=== PATIENT | female | born 1985 | race African-American/Black ===

== ENCOUNTER 2016-11-07 14:33 | Emergency (ER) | payer MEDICAID ==
[2011-06-15 10:42] VITALS: BMI 36.3
[2016-11-07 15:59] LABS: ALBUMIN 3.4 g/dL (3.4-5.0); ANION GAP 16.3 mmol/L (8-16); BASOPHILS 0.4 % (0-2); BILIRUBIN - TOTAL 0.98 mg/dL (0.2-1.3); CALCIUM 8.7 mg/dL (8.5-10.1); CARBON DIOXIDE 20.6 mmol/L (21.0-32.0); EOSINOPHILS 2.2 % (0-7); HEMATOCRIT 42.3 % (36.0-48.0); HEMOGLOBIN 14.2 g/dL (12-16); IMMATURE GRANULOCYTES 0.2 % (0-5); LYMPHOCYTES 45.4 % (15-50); MCH 29.2 pg (26.0-34.0); MCHC 33.6 g/dL (31.0-37.0); MCV 86.9 fL (80.0-100.0); MEAN PLATELET VOLUME 13.3 fL (7.4-10.4); MONOCYTES 6.4 % (2-11); NEUTROPHILS 45.4 % (40-80); POTASSIUM - SERUM 3.9 mmol/L (3.5-5.1); PROTEIN - SERUM 6.7 g/dL (6.4-8.2); RBC 4.87 10x6/uL (4.00-5.40); RDW 13.7 % (11.5-14.5); WBC 4.5 10x3/uL (4.8-10.8)
[2016-11-07 16:06] LABS: PLATELET COUNT 169 10x3/uL (130-400)
== END 2016-11-07 18:15 | disposition home or self-care (01) ==
LOC: D.ER 14:33
PROVIDERS: Emergency Medicine
DX: R06.02 Shortness of breath (principal); J20.9 Acute bronchitis, unspecified; J45.909 Unspecified asthma, uncomplicated; R11.2 Nausea with vomiting, unspecified; R19.7 Diarrhea, unspecified; I50.9 Heart failure, unspecified; R00.0 Tachycardia, unspecified

== ENCOUNTER 2016-12-23 02:29 | Emergency (ER) | payer MEDICAID ==
[2011-06-15 10:42] VITALS: BMI 36.3
[2016-12-23 02:59] LABS: BASOPHILS 0.2 % (0-2); HEMATOCRIT 40.3 % (36.0-48.0); IMMATURE GRANULOCYTES 0.2 % (0-5); MCH 28.3 pg (26.0-34.0); MCHC 32.3 g/dL (31.0-37.0); MCV 87.6 fL (80.0-100.0); MEAN PLATELET VOLUME 12.2 fL (7.4-10.4); MONOCYTES 6.7 % (2-11); NEUTROPHILS 44.9 % (40-80); PLATELET COUNT 148 10x3/uL (130-400); RDW 15.5 % (11.5-14.5); WBC 4.9 10x3/uL (4.8-10.8)
[2016-12-23 03:13] LABS: ALBUMIN 2.9 g/dL (3.4-5.0); ALKALINE PHOSPHATASE 58 U/L (46-116); ALT (SGPT) 15 U/L (10-68); BILIRUBIN - TOTAL 0.71 mg/dL (0.2-1.3); CALC OSMOLALITY 282 mosm/kg (275-300); CALCIUM 8.2 mg/dL (8.5-10.1); CARBON DIOXIDE 24.9 mmol/L (21.0-32.0); CHLORIDE - SERUM 105 mmol/L (98-107); CREATININE - SERUM 1.4 mg/dL (0.6-1.3); GLUCOSE 130 mg/dL (74-106); POTASSIUM - SERUM 3.6 mmol/L (3.5-5.1); PROTEIN - SERUM 5.9 g/dL (6.4-8.2); SODIUM 141 mmol/L (136-145); UREA NITROGEN 12 mg/dL (7-18); eGFR NON AFRICAN AMERICAN 47 mL/min (90-120)
[2016-12-23 03:25] LABS: CHOL - HDL RATIO 3.5 ratio (2.3-4.1); CHOLESTEROL, TOTAL 116 mg/dL (0-200); CKMB 0.4 U/L (0.0-3.6); CREATINE KINASE 124 UL (21-215); HDL CHOLESTEROL 33 mg/dL (32-96); LDL CHOLESTEROL 53 mg/dL (0-100); LDL-HDL RATIO 1.6 ratio (1.5-3.5); TRIGLYCERIDE 150 mg/dL (30-200); TROPONIN-I 0.031 ng/mL (0.000-0.060)
[2016-12-23 08:03] LABS: TROPONIN-I 0.034 ng/mL (0.000-0.060)
== END 2016-12-23 09:35 | disposition home or self-care (01) ==
LOC: D.ER 02:29
PROVIDERS: Emergency Medicine
DX: R07.9 Chest pain, unspecified (principal); I50.9 Heart failure, unspecified

== ENCOUNTER 2016-12-23 11:41 | Emergency (ER) | payer MEDICAID ==
[2011-06-15 10:42] VITALS: BMI 36.3
[2016-12-23 12:44] LABS: BASOPHILS 0.4 % (0-2); EOSINOPHILS 2.4 % (0-7); HEMATOCRIT 44.2 % (36.0-48.0); HEMOGLOBIN 14.3 g/dL (12-16); MCH 28.8 pg (26.0-34.0); MCHC 32.4 g/dL (31.0-37.0); MCV 89.1 fL (80.0-100.0); MONOCYTES 10.4 % (2-11); NEUTROPHILS 51.8 % (40-80); RBC 4.96 10x6/uL (4.00-5.40); RDW 15.9 % (11.5-14.5)
[2016-12-23 12:51] LABS: PLATELET COUNT 277 10x3/uL (130-400)
[2016-12-23 13:02] LABS: ALBUMIN 3.2 g/dL (3.4-5.0); BILIRUBIN - TOTAL 0.74 mg/dL (0.2-1.3); CALCIUM 8.3 mg/dL (8.5-10.1); CARBON DIOXIDE 27.7 mmol/L (21.0-32.0); CREATININE - SERUM 1.2 mg/dL (0.6-1.3); PROTEIN - SERUM 6.6 g/dL (6.4-8.2)
[2016-12-23 13:05] LABS: ANION GAP 11.6 mmol/L (8-16); POTASSIUM - SERUM 4.3 mmol/L (3.5-5.1)
[2016-12-23 13:06] LABS: TROPONIN-I 0.02 ng/mL (0.000-0.060)
== END 2016-12-23 14:40 | disposition home or self-care (01) ==
LOC: D.ER 11:41
PROVIDERS: Family Medicine
DX: R07.9 Chest pain, unspecified (principal); I50.9 Heart failure, unspecified

== ENCOUNTER 2017-02-03 15:24 | Emergency (ER) | payer MEDICAID ==
[2011-06-15 10:42] VITALS: BMI 36.3
[2017-02-03 16:01] LABS: BASOPHILS 0.7 % (0-2); EOSINOPHILS 1.3 % (0-7); HEMATOCRIT 43.1 % (36.0-48.0); IMMATURE GRANULOCYTES 0.2 % (0-5); LYMPHOCYTES 38.8 % (15-50); MCH 28.2 pg (26.0-34.0); MCHC 32.5 g/dL (31.0-37.0); MCV 86.9 fL (80.0-100.0); MONOCYTES 8.9 % (2-11); NEUTROPHILS 50.1 % (40-80); RBC 4.96 10x6/uL (4.00-5.40); RDW 14.7 % (11.5-14.5); WBC 4.5 10x3/uL (4.8-10.8)
[2017-02-03 16:09] LABS: PLATELET COUNT 182 10x3/uL (130-400)
[2017-02-03 16:20] LABS: ALBUMIN 3.4 g/dL (3.4-5.0); ALKALINE PHOSPHATASE 61 U/L (46-116); ALT (SGPT) 16 U/L (10-68); BILIRUBIN - TOTAL 1.26 mg/dL (0.2-1.3); CALC OSMOLALITY 277 mosm/kg (275-300); CALCIUM 8.5 mg/dL (8.5-10.1); CARBON DIOXIDE 25.3 mmol/L (21.0-32.0); CHLORIDE - SERUM 104 mmol/L (98-107); CREATININE - SERUM 0.9 mg/dL (0.6-1.3); GLUCOSE 114 mg/dL (74-106); POTASSIUM - SERUM 3.5 mmol/L (3.5-5.1); PROTEIN - SERUM 6.6 g/dL (6.4-8.2); SODIUM 140 mmol/L (136-145); UREA NITROGEN 7 mg/dL (7-18); eGFR NON AFRICAN AMERICAN 78 mL/min (90-120)
[2017-02-03 16:34] LABS: CHOL - HDL RATIO 3.6 ratio (2.3-4.1); CHOLESTEROL, TOTAL 138 mg/dL (0-200); CKMB 0.5 U/L (0.0-3.6); CREATINE KINASE 131 UL (21-215); HDL CHOLESTEROL 38 mg/dL (32-96); LDL CHOLESTEROL 84 mg/dL (0-100); LDL-HDL RATIO 2.2 ratio (1.5-3.5); PRO BNP 8359 pg/mL (0-125); TRIGLYCERIDE 83 mg/dL (30-200); TROPONIN-I 0.026 ng/mL (0.000-0.060)
== END 2017-02-03 21:00 | disposition home or self-care (01) ==
LOC: D.ER 15:24
PROVIDERS: Emergency Medicine
DX: I50.9 Heart failure, unspecified (principal); R05 Cough; Z86.79 Personal history of other diseases of the circulatory system

== ENCOUNTER 2017-03-11 19:26 | Emergency (ER) | payer MEDICAID ==
[2011-06-15 10:42] VITALS: BMI 36.3
[2017-03-11 20:35] LABS: BASOPHILS 0.6 % (0-2); EOSINOPHILS 1.3 % (0-7); HEMATOCRIT 45.4 % (36.0-48.0); HEMOGLOBIN 14.6 g/dL (12-16); IMMATURE GRANULOCYTES 0.2 % (0-5); LYMPHOCYTES 34.9 % (15-50); MCH 28.2 pg (26.0-34.0); MCHC 32.2 g/dL (31.0-37.0); MCV 87.6 fL (80.0-100.0); MEAN PLATELET VOLUME 12.7 fL (7.4-10.4); MONOCYTES 8.7 % (2-11); NEUTROPHILS 54.3 % (40-80); PLATELET COUNT 188 10x3/uL (130-400); RBC 5.18 10x6/uL (4.00-5.40); RDW 15.1 % (11.5-14.5); WBC 5.2 10x3/uL (4.8-10.8)
[2017-03-11 20:58] LABS: ALBUMIN 3.3 g/dL (3.4-5.0); ALKALINE PHOSPHATASE 53 U/L (46-116); ALT (SGPT) 16 U/L (10-68); CALC OSMOLALITY 278 mosm/kg (275-300); CARBON DIOXIDE 26.4 mmol/L (21.0-32.0); CHLORIDE - SERUM 103 mmol/L (98-107); CREATININE - SERUM 1.2 mg/dL (0.6-1.3); GLUCOSE 109 mg/dL (74-106); POTASSIUM - SERUM 3.5 mmol/L (3.5-5.1); PROTEIN - SERUM 6.5 g/dL (6.4-8.2); SODIUM 140 mmol/L (136-145); UREA NITROGEN 9 mg/dL (7-18); eGFR NON AFRICAN AMERICAN 56 mL/min (90-120)
[2017-03-11 21:03] LABS: CKMB 0.2 U/L (0.0-3.6); CREATINE KINASE 113 UL (21-215); PRO BNP 9810 pg/mL (0-125); TROPONIN-I 0.029 ng/mL (0.000-0.060)
== END 2017-03-11 22:35 | disposition home or self-care (01) ==
LOC: D.ER 19:26
PROVIDERS: Emergency Medicine
DX: R05 Cough (principal); R09.89 Other specified symptoms and signs involving the circulatory and respiratory systems; I50.9 Heart failure, unspecified; R07.9 Chest pain, unspecified; R00.0 Tachycardia, unspecified

== ENCOUNTER 2017-03-17 19:47 | Emergency (ER) | payer MEDICAID ==
[2011-06-15 10:42] VITALS: BMI 36.3
== END 2017-03-17 21:35 | disposition home or self-care (01) ==
LOC: D.ER 19:47
DX: R07.89 Other chest pain (principal); R05 Cough

== ENCOUNTER 2018-02-14 06:22 | Emergency (ER) | payer MEDICAID ==
[~2018-02-14] VITALS: Ht 152.4 cm; Wt 89.5 kg
[2018-02-14 06:28] VITALS: Ht 152.4 cm; Wt 89.5 kg
[2018-02-14] MEDS ORDERED: FUROSEMIDE20 MG PO (06:34)
[2018-02-14] MEDS ORDERED: COREG12.5 MG (06:34)
[2018-02-14] MEDS ORDERED: KLOR-CON 1010 MEQ PO (06:35)
[2018-02-14] MEDS ORDERED: BAYER CHEWABLE81 MG (06:35)
[2018-02-14] MEDS ORDERED: COREG12.5 MG PO (06:35)
[2018-02-14 06:54] LABS: BASOPHILS 0.6 % (0-2); EOSINOPHILS 1.4 % (0-7); HEMATOCRIT 41.8 % (36.0-48.0); HEMOGLOBIN 13.5 g/dL (12-16); IMMATURE GRANULOCYTES 0.2 % (0-5); LYMPHOCYTES 34.2 % (15-50); MCH 28.8 pg (26.0-34.0); MCHC 32.3 g/dL (31.0-37.0); MCV 89.3 fL (80.0-100.0); MEAN PLATELET VOLUME 12.6 fL (7.4-10.4); MONOCYTES 6.8 % (2-11); NEUTROPHILS 56.8 % (40-80); PLATELET COUNT 166 10x3/uL (130-400); RBC 4.68 10x6/uL (4.00-5.40); RDW 15.5 % (11.5-14.5)
[2018-02-14 07:31] LABS: BILIRUBIN - TOTAL 1.02 mg/dL (0.2-1.3); CALCIUM 8.1 mg/dL (8.5-10.1); CARBON DIOXIDE 24.6 mmol/L (21.0-32.0); CREATININE - SERUM 1.1 mg/dL (0.6-1.3); POTASSIUM - SERUM 3.6 mmol/L (3.5-5.1); PROTEIN - SERUM 6.2 g/dL (6.4-8.2)
[2018-02-14 08:16] LABS: CKMB 0.6 U/L (0.0-3.6); CREATINE KINASE 129 UL (21-215)
[2018-02-14 09:59] LABS: HCG SERUM NEGATIVE (NEGATIVE)
[2018-02-14] MEDS ORDERED: LASIX40 MG PO (10:58)
[2018-02-14 11:26] VITALS: BP 123/77
== END 2018-02-14 11:28 | disposition home or self-care (01) ==
LOC: D.ER 06:22
PROVIDERS: Family Medicine
DX: I50.9 Heart failure, unspecified (principal); I42.9 Cardiomyopathy, unspecified; R07.9 Chest pain, unspecified

== ENCOUNTER 2020-11-04 20:04 | Inpatient (IN) | payer MEDICAID ==
[~2020-11-04] VITALS: Ht 152.4 cm; Wt 59.9 kg
--- NOTE | ~2020-11-04 | OP ---
PATIENT NAME: NIRANJAN TUTTLE MEDICAL RECORD: [id number] LOCATION:D.M2 D.3 ADMISSION DATE:11/04/20 SURGEON: COLIN LABOY MD DATE OF OPERATION: 11/11/2020 PREOPERATIVE DIAGNOSES: 1. Ventral hernia. 2. Cardiomyopathy. 3. Congestive heart failure. POSTOPERATIVE DIAGNOSES: 1. Ventral hernia. 2. Cardiomyopathy. 3. Congestive heart failure. PROCEDURE: Ventral hernia repair. SURGEON: Colin Laboy MD REPORT OF PROCEDURE: The patient's abdomen was prepped and draped in sterile fashion. Preoperatively, the patient underwent a TAP block with anesthesia. A total of 10 mL of 1% lidocaine plain was infused into the tissues around the umbilicus. A semicircular incision was made on the inferior aspect of the umbilicus and electrocautery was used to dissect through the subcutaneous tissues. We elevated the umbilicus and was able to find a small hernia defect present. The hernia sac was transected down to the fascial edges and the defect was about a centimeter in greatest diameter. We closed this defect longitudinally with interrupted 0 Prolenes times 3. The umbilicus was tacked down with a single interrupted 3-0 Vicryl. The subcutaneous tissues were reapproximated with interrupted 3-0 Vicryl and the skin was closed with running subcutaneous 5-0 Monocryl. COMPLICATIONS: None. CONDITION: Stable. ANESTHESIA: Local and TAP block. BLOOD LOSS: Minimal. TRANSINT:[id number] Voice Confirmation ID: [id number] DOCUMENT ID: [id number] COLIN LABOY MD CC: [id number] DICTATION DATE: 11/11/20 1054 HOG BUYER: 11/11/20 1112 ADM IN [facility] [address] [id number]
[~2020-11-04 20:04] MED LIST: BAYER CHEWABLE81 MG PO; COREG12.5 MG; COREG12.5 MG PO; FUROSEMIDE20 MG PO; KLOR-CON 1010 MEQ PO; LASIX40 MG PO
--- NOTE | 2020-11-04 20:26 | NUR ---
EMS CALLED TO [facility]IDENCE REGARDING MID STERNAL CHEST PAIN AND UPPER ABD PAIN WITH NAUSEA THAT BEGAN ON SUNDAY. ADMITTED TO [facility] FOR SAME AND DISCHARGED TODAY.
[2020-11-04 20:52] LABS: BILIRUBIN NEGATIVE (NEGATIVE); KETONE NEGATIVE (NEGATIVE); NITRITE NEGATIVE (NEGATIVE); UROBILINOGEN NORMAL mg/dL (< 2)
[2020-11-04 20:54] LABS: HCG URINE NEGATIVE (NEGATIVE)
[2020-11-04 21:00] VITALS: BP 114/91
[2020-11-04 21:32] LABS: BASOPHILS 0.9 % (0-2); EOSINOPHILS 1.7 % (0-7); HEMATOCRIT 47.7 % (36.0-48.0); HEMOGLOBIN 15.9 g/dL (12-16); LYMPHOCYTE ABS# 1.09 10x3/uL (1.18-3.74); LYMPHOCYTES 31.6 % (15-50); MCH 27.7 pg (26.0-34.0); MCHC 33.3 g/dL (31.0-37.0); MCV 83.2 fL (80.0-100.0); MONOCYTES 14.2 % (2-11); NEUTROPHIL ABS# 1.78 10x3/uL (1.56-6.13); NEUTROPHILS 51.6 % (40-80); RBC 5.73 10x6/uL (4.00-5.40); RDW 14.7 % (11.5-14.5); WBC 3.5 10x3/uL (4.8-10.8)
[2020-11-04 21:33] LABS: PLATELET COUNT 89 10x3/uL (130-400)
[2020-11-04 21:35] LABS: PLATELET ESTIMATE DECREASED
[2020-11-04] MEDS ORDERED: FENTANYL1 EAC3 TRANSDERM (21:36)
[2020-11-04] MEDS ORDERED: SCOPOLAMINE1 EACH (21:37)
[2020-11-04 21:40] LABS: ANION GAP 14.4 mmol/L (8-16); CALCIUM 9.5 mg/dL (8.5-10.1); CARBON DIOXIDE 30.6 mmol/L (21.0-32.0); CREATININE - SERUM 1.4 mg/dL (0.6-1.3)
[2020-11-04 22:00] VITALS: BP 114/80
[2020-11-04 22:01] LABS: ALBUMIN 4.1 g/dL (3.4-5.0); BILIRUBIN - TOTAL 2.99 mg/dL (0.2-1.3)
[2020-11-04 22:02] LABS: TROPONIN-I 0.082 ng/mL (0.000-0.060)
[2020-11-04 22:09] LABS: UDS - AMPHET NEGATIVE QUAL (NEGATIVE); UDS - BARB NEGATIVE QUAL (NEGATIVE); UDS - BENZO NEGATIVE QUAL (NEGATIVE); UDS - COCAINE NEGATIVE QUAL (NEGATIVE); UDS - OPIATE POSITIVE QUAL (NEGATIVE); UDS - PCP NEGATIVE QUAL (NEGATIVE); UDS - THC POSITIVE QUAL (NEGATIVE)
[2020-11-04 22:36] LABS: APTT 35.6 SECONDS (22.8-39.4); INR 1.42 (0.85-1.17); PROTIME 16.1 SECONDS (11.6-15.0)
[2020-11-04 22:37] LABS: D-DIMER-QUANTITATIVE 0.33 ug/mLFEU (0.20-0.54)
[2020-11-04 22:49] LABS: MAGNESIUM - SERUM 1.3 mg/dL (1.8-2.4); THYROID STIMULATING HORMONE 1.45 uIU/mL (0.36-3.74)
[2020-11-04 23:00] VITALS: BP 105/70
[2020-11-05 00:17] VITALS: BMI 25.8
--- NOTE | 2020-11-05 00:24 | NUR ---
PT ARRIVED TO THE UNIT VIA STRETCHER TRANSPORTED BY RN WITH SISTER JAMES AT THE BEDSIDE. PT IS AAOX4, LAYING IN BED ON RIGHT SIDE. PT C/O NOT FEELING GOOD. PT ACTIVELY VOMITING, GIVEN ORN ZOFRAN ORDERED IV. PT SEEMS TO HAVE SOME RELEIF FROM VOMITING. PT ABLE TO ANSWER QUESTIONS APPROPRIATELY. FETANYL PATCH PRESENT ON HER LOWER BACK FROM PREVIOUS HOSPITAL ADMISSION. PT ALSO HAS A SCOPOLOMINE PATCH ON FROM PREVIOUS HOSPITAL ADMISSION AND STATES IT DOES NOT WORK AND HAS HAD IT NOW FOR THREE DAYS. IV IS 20 GAUGE IN LEFT AC, INTACT, PATENT. PRN MAG STARTED IV ORDERED FOR LOW MAGNESIUM LEVEL. ED RN STATED SHE REPLACED POTASSIUM ALREADY. WILL CONTINUE TO MONITOR PATIENT. SISTER JAMES AT THE BEDSIDE. PT FATHER IS A PT ACROSS THE [employer].
--- NOTE | 2020-11-05 01:21 | NUR ---
PT C/O PAIN IN HER LEFT JUDAISM. PT STATES SHE NEEDS PAIN MEDICATION, PT HAS A PATCH IN PLACE BUT SAID "THEY USUALLY GIVE ME MORPHINE TOO" PAGED, SPOKE TO TANYA, NO FURTHER PAIN MEDS AT THIS TIME.
[2020-11-05 02:11] VITALS: BP 103/72
--- NOTE | 2020-11-05 02:25 | NUR ---
PT GIVEN TYLENOL FOR HEADACHE. PT REMOVED HER NITRO PATCH. PT REQUESTED MORPHINE FOR PAIN. MD CALLED, NO NEW ORDERS FOR MORPHINE. PT STOPPED VOMITING. PT RESTING IN BED ON LEFT SIDE, SISTER JAMES AT THE BEDSIDE. NO FURTHER NEEDS EXPRESSED AT THIS TIME. WILL CONTINUE TO MONITOR PT.
[2020-11-05 04:44] LABS: INR 1.44 (0.85-1.17); PROTIME 16.2 SECONDS (11.6-15.0)
[2020-11-05 04:45] LABS: APTT 34.8 SECONDS (22.8-39.4); BASOPHILS 0.5 % (0-2); EOSINOPHILS 0.9 % (0-7); HEMATOCRIT 47.2 % (36.0-48.0); HEMOGLOBIN 15.9 g/dL (12-16); IMMATURE GRANULOCYTES 0.2 % (0-5); LYMPHOCYTE ABS# 1.11 10x3/uL (1.18-3.74); LYMPHOCYTES 25.5 % (15-50); MCHC 33.7 g/dL (31.0-37.0); MCV 83.2 fL (80.0-100.0); MONOCYTES 15.6 % (2-11); NEUTROPHIL ABS# 2.49 10x3/uL (1.56-6.13); NEUTROPHILS 57.3 % (40-80); RBC 5.67 10x6/uL (4.00-5.40); RDW 14.8 % (11.5-14.5)
[2020-11-05 04:46] LABS: PLATELET COUNT 108 10x3/uL (130-400); WBC 4.4 10x3/uL (4.8-10.8)
[2020-11-05 05:06] LABS: ALBUMIN 3.9 g/dL (3.4-5.0); ALKALINE PHOSPHATASE 79 U/L (30-120); ALT (SGPT) 11 U/L (10-68); CALC OSMOLALITY 272 mosm/kg (275-300); CALCIUM 9.2 mg/dL (8.5-10.1); CARBON DIOXIDE 34.1 mmol/L (21.0-32.0); CHLORIDE - SERUM 96 mmol/L (98-107); CKMB 0.3 U/L (0.0-3.6); CREATINE KINASE 61 UL (21-215); CREATININE - SERUM 1.4 mg/dL (0.6-1.3); GLUCOSE 97 mg/dL (74-106); PRO BNP 8250 pg/mL (0-125); PROTEIN - SERUM 7.7 g/dL (6.4-8.2); SODIUM 136 mmol/L (136-145); UREA NITROGEN 14 mg/dL (7-18); eGFR NON AFRICAN AMERICAN 46 mL/min (90-120)
[2020-11-05 05:24] LABS: MAGNESIUM - SERUM 2.9 mg/dL (1.8-2.4); POTASSIUM - SERUM 3.6 mmol/L (3.5-5.1); TROPONIN-I 0.084 ng/mL (0.000-0.060)
[2020-11-05 05:25] VITALS: BP 96/64
--- NOTE | 2020-11-05 07:00 | NUR ---
PT LYING IN BED WITH EYES CLOSED. RESP EVEN AND UNLABORED. RAISES TO VERBAL STIMULI. AAOX4. DENIES NEEDS AT THIS TIME. CLIR. BED IN LOWEST POSITION. SIDE RAILS X2
[2020-11-05 08:42] VITALS: BP 106/64
[2020-11-05 10:21] LABS: CKMB 0.3 U/L (0.0-3.6); CREATINE KINASE 70 UL (21-215); TROPONIN-I 0.071 ng/mL (0.000-0.060)
[2020-11-05 12:58] VITALS: BP 80/52
[2020-11-05 16:00] VITALS: BP 83/50
[2020-11-05 16:18] LABS: CKMB 0.5 U/L (0.0-3.6); CREATINE KINASE 63 UL (21-215)
--- NOTE | 2020-11-05 17:30 | NUR ---
PT'S BP 83/50. DR DAVIS NOTIFIED. NO NEW ORDERS
--- NOTE | 2020-11-05 19:43 | NUR ---
REPORT RECIEVED AND INITIAL ROUNDS COMPLETED. PT RESTING. NO DISTRESS. CALL LIGHT IN REACH.
[2020-11-05 21:31] VITALS: BP 91/60
--- NOTE | 2020-11-05 23:48 | NUR ---
RAFA MARIEE APN. REPORTED PT'S C/O ABDOMINAL PAIN/CRAMPING. KUB ORDERED.
[2020-11-06] VITALS (7 sets, daily range): BP systolic 92–119; BP diastolic 53–67
--- NOTE | 2020-11-06 01:25 | NUR ---
KUB TO ABDOMEN COMPLETED AND SHOWS NO EVIDENCE OF BOWEL OBSTRUCTION. PT STILL C/O ABDOMINAL PAIN/DISCOMFORT.
--- NOTE | 2020-11-06 03:51 | NUR ---
PT CONTINUES TO HAVE C/O PAIN TO ABDOMEN/HEAD/FEELING VERY POORLY. MEDICATED WITH PROTONIX AND IV ZOFRAN FOR GI/ABDOMINAL PAIN/DISCOMFORT. IV BENADRYL GIVEN TO HELP PT REST. REMOVED NITRO PASTE FROM CHEST WALL TO HELP REDUCE HEADACHE. SR PER TELEMETRY.
[2020-11-06 05:21] LABS: BASOPHILS 0.8 % (0-2); EOSINOPHILS 3.6 % (0-7); HEMATOCRIT 47.3 % (36.0-48.0); HEMOGLOBIN 15.9 g/dL (12-16); LYMPHOCYTE ABS# 1.77 10x3/uL (1.18-3.74); LYMPHOCYTES 49.2 % (15-50); MCH 28.2 pg (26.0-34.0); MCHC 33.6 g/dL (31.0-37.0); MCV 83.9 fL (80.0-100.0); MONOCYTES 11.4 % (2-11); NEUTROPHIL ABS# 1.26 10x3/uL (1.56-6.13); PLATELET COUNT 102 10x3/uL (130-400); RBC 5.64 10x6/uL (4.00-5.40); RDW 14.7 % (11.5-14.5); WBC 3.6 10x3/uL (4.8-10.8)
[2020-11-06 05:59] LABS: ALBUMIN 3.6 g/dL (3.4-5.0); ANION GAP 12.1 mmol/L (8-16); BILIRUBIN - TOTAL 1.7 mg/dL (0.2-1.3); CALCIUM 8.8 mg/dL (8.5-10.1); CARBON DIOXIDE 29.1 mmol/L (21.0-32.0); CREATININE - SERUM 1.5 mg/dL (0.6-1.3); POTASSIUM - SERUM 3.2 mmol/L (3.5-5.1); PROTEIN - SERUM 7.2 g/dL (6.4-8.2)
[2020-11-06 06:17] LABS: MAGNESIUM - SERUM 2.1 mg/dL (1.8-2.4)
--- NOTE | 2020-11-06 07:32 | NUR ---
INITIAL ROUNDS- PT IN BED C/O ABD PAIN. PT UNABLE TO HAVE ANYTHING FOR PAIN UNTIL AROUND 8. PT A/O X4, RESP EVEN AND NONLABORED ON RA. LT AC SL. SR-82 ON TELE. PT DENIES ANY OTHER NEEDS AT THIS TIME. CALL LIGHT IN REACH, WILL CONTINUE PLAN OF CARE.
--- NOTE | 2020-11-06 09:20 | NUR ---
PT TO CT.
[2020-11-06 10:10] LABS: HEPATITIS C ANTIBODY <0.1 S/CO RAT (0.0-0.9)
--- NOTE | 2020-11-06 11:33 | NUR ---
PT C/O ABD PAIN, CALLED [facility] NEW ORDER FOR 1MG OF MORPHINE ONE TIME DOSE IF SYSTOLIC IS ABOVE 100.
--- NOTE | 2020-11-06 14:03 | NUR ---
UPDATED PT'S MOTHER ERIN ON PT'S PLAN OF CARE.
--- NOTE | 2020-11-06 16:24 | NUR ---
UPDATED PT'S MOTHER ON NEW ORDER FOR SURGERY CONSULT FOR INTRACTABLE ABD PAIN. ALSO INFORMED HER THAT PT CANNOT HAVE ANY PAIN MEDICATION AT THIS TIME. DUE TO HER BP STILL BEING LOW. PT'S DAUGHTER VERBALIZED UNDERSTANDING.
--- NOTE | 2020-11-06 20:28 | NUR ---
INITIAL ROUNDS AND ASSESSMENT COMPLETED. PT RESTING IN BED WITH EYES CLOSED. IV TO LEFT A/C WITH DOBUTAMINE AT 3MCG/KG/MIN (5.5ML/HR) INFUSING. NONLABORED RESPIRATIONS. NO DISTRESS. CALL LIGHT IN REACH.
[2020-11-07 01:23] VITALS: BP 103/75
--- NOTE | 2020-11-07 01:24 | NUR ---
PT C/O ABDOMINAL PAIN AND SHOWED NURSE A SMALL PROTRUSION BELOW HER NAVEL AREA THAT WAS FIRM TO TOUCH. PT STATES IT POPS IN AND OUT AND WHEN IT DOES SHE HAS HORRIBLE PAIN. PT IS CURRENTLY IN HER ROOM WITH FOOD THAT WAS DELIVERED A FEW MINUTES EARLIER FROM HER MOTHER. SHE IS EATING A BURRITO AND SUSHI. SHE DOES NOT SEEM TO FEEL THIS HAS ANYTHING TO DO WITH HER ABDOMINAL PAIN. SPOKE WITH TANYA MARIEE APN. REPORTED ABOVE. NEW ORDERS RECIEVED FOR A SURGERY CONSULT TO ASSESS ABDOMINAL PROTRUSIONS AND AN ORDER FOR LEVSIN PRN FOR ABDOMINAL PAIN. PT WAS GIVEN LEVSIN ORAL DOSE AND ENCOURAGED TO TRY AND SLEEP. ENCOURAGED TO FOLLOW A BLAND DIET.
[2020-11-07 05:07] VITALS: BP 104/75
[2020-11-07 06:23] LABS: BASOPHILS 0.6 % (0-2); EOSINOPHILS 3.9 % (0-7); HEMATOCRIT 47.8 % (36.0-48.0); HEMOGLOBIN 15.7 g/dL (12-16); LYMPHOCYTES 44.1 % (15-50); MCH 27.5 pg (26.0-34.0); MCHC 32.8 g/dL (31.0-37.0); MCV 83.9 fL (80.0-100.0); MONOCYTES 13.8 % (2-11); NEUTROPHIL ABS# 1.37 10x3/uL (1.56-6.13); NEUTROPHILS 37.6 % (40-80); PLATELET COUNT 90 10x3/uL (130-400); RDW 14.7 % (11.5-14.5); WBC 3.6 10x3/uL (4.8-10.8)
--- NOTE | 2020-11-07 06:34 | NUR ---
KEEPING PT NPO UNTIL SEEN BY SURGEON TODAY. SHE IS RESTING WITH NO DISTRESS. IV DOBUTAMINE INFUSING AT 3MCG/KG/MIN. CALL LIGHT IN REACH.
[2020-11-07 06:47] LABS: ALBUMIN 3.8 g/dL (3.4-5.0); ANION GAP 14.9 mmol/L (8-16); BILIRUBIN - TOTAL 1.29 mg/dL (0.2-1.3); CALCIUM 9.4 mg/dL (8.5-10.1); CARBON DIOXIDE 29.7 mmol/L (21.0-32.0); CREATININE - SERUM 1.2 mg/dL (0.6-1.3); MAGNESIUM - SERUM 1.9 mg/dL (1.8-2.4); POTASSIUM - SERUM 3.6 mmol/L (3.5-5.1); PROTEIN - SERUM 7.3 g/dL (6.4-8.2)
[2020-11-07 07:02] LABS: PLATELET ESTIMATE DECREASED
--- NOTE | 2020-11-07 07:49 | NUR ---
INITIAL ROUNDS PT RESTING COMFORTABLY IN BED WITH EYES CLOSED, RESP EVEN AND NONLABORED ON RA. LT AC INFUSING DOBUTAMINE AT 5.5CC/HR 3MCG/KG/MIN. SR-66 ON TELE. CALL LIGHT IN REACH, WILL CONTINUE PLAN OF CARE.
[2020-11-07 08:07] VITALS: BP 97/68
--- NOTE | 2020-11-07 09:46 | NUR ---
DR. KENNEY AT BEDSIDE TO ASSESS AND TALK TO PT ABOUT PLAN OF CARE. ALL QUESTIONS ANSWERED. ALSO INFORMED DR. KENNEY THAT PT IS WANTING SOMETHING FOR PAIN BUT DOES NOT HAVE ANYTHING ORDERED FOR PAIN. INFORMED HIM THAT YESTERDAY PT HAD 1MG OF MORHINE ONE TIME ORDER IF HER SYSTOLIC BP WAS ABOVE 100. PER DR. KENNEY AFTER DR. DAVIS GOES IN TO TALK TO PT AND IF HE IS OK WITH IT PT CAN HAVE 1MG OF MORPHINE ONE TIME ORDER.
[2020-11-07 11:22] VITALS: BP 99/65
--- NOTE | 2020-11-07 12:40 | NUR ---
PT RESTING COMFORTABLY IN BED, DENIES ANY NEEDS AT THIS TIME. CALL LIGHT IN REACH.
[2020-11-07 15:18] VITALS: BP 94/65
--- NOTE | 2020-11-07 16:40 | NUR ---
SHOWER AND COMPLETE LINEN CHANGE. ALSO GAVE 650MG OF TYLENOL FOR PAIN LEVEL OF 10/10. ALL NEEDS MET, FAMILY AT BEDSIDE, CALL LIGHT IN REACH.
--- NOTE | 2020-11-07 18:10 | NUR ---
PT C/O SEVERE ABD PAIN, INFORMED HER THAT SHE HAS NOTHING ORDERED FOR PAIN AND WITH HER BP BEING LOW SHE CANNOT HAVE ANYTHING. PT AND PT'S MOTHER INSISTED THAT I CALL THE DOCTOR TO GET HER SOMETHIG FOR PAIN, PAGED TANYA MARIEE APRN.
--- NOTE | 2020-11-07 18:25 | NUR ---
RECEIVED CALL BACK FROM TANYA MARIEE APRN AND INFORMED HER THAT PT IS REQUESTING PAIN MEDICATION, PER TANYA MARIEE, PT CAN ONLY HAVE TYLENOL.
--- NOTE | 2020-11-07 19:23 | NUR ---
INITIAL ROUNDS. PT IN ROOM WITH HER MOTHER. WAILING. ANGRY. DEMANDING. THREATENING TO LEAVE AND GO TO [facility]. SAYING SHE IS BEING DENIED HER NECESSARY PAIN MEDICATION. PAGE TO TANYA MARIEE APN. PT ALSO SAYING SHE WAS NOT VISITED BY ANY MD'S EXCEPT FOR DR DAVIS AND IS UPSET THAT NO ONE IS TELLING HER ANYTHING OR CONTINUING HER HOME PAIN MED REGIMEN.
--- NOTE | 2020-11-07 19:49 | NUR ---
RETURN CALL FROM TANYA MARIEE APN. STATES THE PAIN MEDICATION ISSUE HAS BEEN ADDRESSED, THAT PATIENT CANNOT HAVE ANY PAIN MEDS. PT'S MOTHER STANDING AT STATION AND LISTENING TO PHONE CALL. REVIEWED WHAT PATIENT'S HOME PAIN MED REGIMEN IS WITH PATIENT'S MOTHER AND WITH TANYA MARIEE ON PHONE. TANYA STATES DR KENNEY WILL BE CONTACTED FOR FURTHER ORDERS. TANYA RETURNED CALL AND NEW ORDER PER DR KENNEY WILL BE ADDED FOR IV TYLENOL, BUT NO OTHER PAIN MEDICATION WILL BE GIVEN DUE TO HER MEDICAT STATUS. PT CURRENTLY OUT IN THE HALLWAY WALKING WITH A FAMILY MEMBER.
[2020-11-07 20:00] VITALS: BP 102/80
--- NOTE | 2020-11-07 23:51 | NUR ---
PT HAS BEEN GIVEN IV TYLENOL X [address] KENNEY. SHE IS STILL MOANING/GROANING AND INDICATING THAT SHE CANNOT STAND THE PAIN SHE IS IN. PT HAS HAD MD/DIRECTOR GLOBAL STRATEGIC PUBLISHER SALES/PRIMARY DAY NURSE AND THIS NURSE ALL HAVE EXPLAINED TO PATIENT THE REASONS SHE IS NOT SAFE TO TAKE PAIN MEDS WITH HER CURRENT HEALTH STATUS. PT HAS HAD MULTIPLE FAMILY IN ROOM AND THIS MAY BE INFLUENCING HER BEHAVIORS THEY ARE VERY CONCERNED AND PROACTIVE IN ASKING FOR MEDS FOR HER. TANYA HAS BEEN CALLED 3 TIMES FOR ORDERS, SHE HAS SPOKEN WITH DR KENNEY FOR ORDERS AND HAS JUST BEEN CALLED AGAIN FOR PT'S INSISTENCE THAT SHE MUST HAVE SOMETHING. NEW ORDER FOR MELATONIN AND TO GIVE A DOSE OF IV BENADRYL ALSO.
[2020-11-08] VITALS: BP 113/80
[2020-11-08 04:00] VITALS: BP 102/73
--- NOTE | 2020-11-08 04:43 | NUR ---
PT HAS NOT SLEPT THIS ENTIRE SHIFT. SHE IS RESTLESS AND FREQUENTLY ASKING/BEGGING AND CRYING FOR PAIN MEDS. HER MOTHER IS PRESENT AND TRYS TO KEEP PATIENT CALM AND RESTING BUT WITH NO SUCCESS. TYLENOL PROVIDED. IV DOBUTAMINE IS INFUSING. HAS BEEN NPO SINCE MIDNIGHT FOR POTENTIAL SURGERY THIS AM.
--- NOTE | 2020-11-08 05:30 | NUR ---
PT'S MOTHER CAME OUT OF ROOM AND YELLED THAT PT WAS ON THE FLOOR. STAFF TO ROOM. ASSESSED PT. PT IS ALERT/ORIENTED. HER MOTHER TELLING HER TO SETTLE DOWN AND ANSWER THE NURSES QUESTIONS. PT INDICATED THAT HER LEFT HIP AND COCCXY AREA ARE HURTING. PT WAS STOOD UP BY STAFF X 3, ABLE TO GET BACK IN BED AND MOVE LEGS FREELY ON HER OWN. PT THEN WRITHING ALL OVER THE BED AND KICKING AT HER COVERS SAYING HER REAR AND HER LEG (LEFT) HURT. PAGE TO TANYA MARIEE APN.
--- NOTE | 2020-11-08 06:00 | NUR ---
RETURN CALL FROM TANYA MARIEE APN AND REPORTED FALL AND PT'S C/O LEFT HIP AND SACRAL/COCCYX AREA PAIN. ORDERS RECIEVED. PT'S MOTHER IS AT BEDSIDE SO SHE IS IN KNOWLEDGE OF PT'S FALL. PT'S MOM BACK IN THE HALLWAY. PT DEMANDING TO GO TO BATHROOM TO "POOP" AND WILL NOT USE A BEDPAN. STAFF AND PT'S MOM ASSISTED PT TO AMBULATE INTO BATHROOM FOR HER TO VOID, NO BM. WALKED BACK TO BED, PT NOW IN THE BED. SR UP X 3. CALL LIGHT IN REACH.
[2020-11-08 08:00] VITALS: BP 114/79
--- NOTE | 2020-11-08 08:29 | NUR ---
PT HOLLARING OUT OFF AND ON THIS MORNING. RR EVEN NON LABORED. PT STATES TO HAVE PAIN AND NAUSEA. OFFERED PT NAUSEA MEDICATION AND SHE STATES "IT MAKES ME SICK," AND REFSUED. EDUCATION PROVIDED REGARDING PAIN MEDICATION. MOTHER AT BEDSIDE. PT AWAKE AND ALERT, MOVES IN BED WITHOUT ASSISTANCE. NO FURTHER NEEDS VOICED, CLWR.
[2020-11-08 09:06] LABS: BASOPHILS 0.7 % (0-2); HEMATOCRIT 53.6 % (36.0-48.0); HEMOGLOBIN 18.3 g/dL (12-16); LYMPHOCYTE ABS# 1.42 10x3/uL (1.18-3.74); MCH 28.2 pg (26.0-34.0); MCHC 34.1 g/dL (31.0-37.0); MCV 82.6 fL (80.0-100.0); MONOCYTES 8.4 % (2-11); NEUTROPHIL ABS# 2.34 10x3/uL (1.56-6.13); NEUTROPHILS 55.9 % (40-80); RBC 6.49 10x6/uL (4.00-5.40); RDW 14.9 % (11.5-14.5); WBC 4.2 10x3/uL (4.8-10.8)
--- NOTE | 2020-11-08 09:10 | NUR ---
AM MEDS GIVEN WITH PRN GASTRIC MEDICATION. PT ASKS FOR PAIN MEDICATION WHILE MOANING AND STATING "IM TIRED OF THIS MAN" SPOKE WITH PT REGARDING NOT HAVING AN ORDER TO GIVE HER PAIN MEDICATION. OFFERED PT TYLENOL. PT REFUSED. MOTHER AT BEDSIDE. PAGED JESSICA FOR POTENTIAL ORDER OR FURTHER PLAN. NO NEEDS VOICED BY PT. CLWR.
[2020-11-08 09:14] LABS: PLATELET COUNT 120 10x3/uL (130-400)
[2020-11-08 09:39] LABS: ALBUMIN 4.4 g/dL (3.4-5.0); ANION GAP 18.7 mmol/L (8-16); BILIRUBIN - TOTAL 2.29 mg/dL (0.2-1.3); MAGNESIUM - SERUM 1.7 mg/dL (1.8-2.4); POTASSIUM - SERUM 3.7 mmol/L (3.5-5.1); PROTEIN - SERUM 8.2 g/dL (6.4-8.2)
--- NOTE | 2020-11-08 09:47 | NUR ---
NEW ORDER FOR PRN PAIN MEDICATION PLACED BY DR KATZ, PRN MEDICATION GIVEN AT THIS TIME. INSTRUCTED PT AND MOTHER TO NOT EXIT THE BED WITHOUT ASSISTANCE. BOTH STATE UNDERSTANDING. CLWR.
--- NOTE | 2020-11-08 10:08 | NUR ---
PT MOM CAME TO NURSES STATION AND STATED SHE HAD A BLACK PAIR OF PANTS OVER THE TOWEL RACK IN THE RESTROOM WITH HER GLORIA RING INSIDE THE POCKET AND IT IS NO LONGER THERE. NURSE ENTERED THE ROOM AND FOUND THE PANTS FOLDED IN THE CLOSET. GAVE PANTS TO PT MOTHER WHO LOOKED INSIDE POCKET AND DID NOT FIND HER RING. NO RING NOTED IN CLOSET OR BATHROOM FLOOR. NOTIFIED CHARGE NURSE GABINO.
--- NOTE | 2020-11-08 10:23 | NUR ---
PT LYING ON BACK WITH HOB RAISED, RR EVEN NON LABORED. PT EYES CLOSED. WILL CONTINUE TO MONITOR. CLWR. MOTHER AT BEDSIDE.
[2020-11-08 11:00] VITALS: BP 116/74
--- NOTE | 2020-11-08 11:15 | NUR ---
NOTIFIED LUKASZ REGARDING PT MOTHER AND HER RING. CALLED SECURITY FOR FURTHER ASSISTANCE. NO ANSWER, WILL TRY AGAIN.
--- NOTE | 2020-11-08 13:12 | NUR ---
PT CALLED OUT AND ASKED ABOUT PAIN MEDICATION. INSTRUCTED PT REGARDING FREQUENCY OF PRN MEDICATION. NO FURTHER NEEDS VOICED. CLWR.
--- NOTE | 2020-11-08 14:25 | NUR ---
PT MOTHER CALLED OUT AND WHEN NURSE ENTERED ROOM PT MOTHER EXPRESSED FRUSTRATION REGARDING NOT HAVING ANSWERS REGARDING SURGERY TODAY. PAGED FAVIO REGARDING A PLAN OF CARE. REASSURANCE GIVEN TO PT MOTHER. PT BEGINS TO BECOME UPSET MOTHER STATES SHE WANTS TO LEAVE AMA. PT REQUESTED TO STAY AND THE PAIN MEDICATION IS WORKING. SISTER ALSO AT BEDSIDE. NURSE STATES APOLOGY REGARDING NOT HAVING ANSWERS FOR THE FAMILY. WILL NOTIFY THEM UPON NEW ORDERS. NUMBER FOR SISTER KALINA [phone] TAKEN FOR UPDATES. NO FURTHER NEEDS REQUESTED. CLWR.
--- NOTE | 2020-11-08 14:43 | NUR ---
NOTIFIED PT AND MOTHER REGARDING NO SURGERY TODAY PER FAVIO AND DR LABOY. DR LABOY TO ROUND ON PT THIS AFTERNOON. TRAY ORDERED WITH FRUIT PER REQUEST. NO FURTHER NEEDS VOICED. CLWR.
--- NOTE | 2020-11-08 14:56 | NUR ---
PT TOOK SHOWER WITH ASSISTANCE FROM HER MOTHER. NEW LINENS PLACED ON BED. NO FURTHER NEEDS VOICED. CLWR.
--- NOTE | 2020-11-08 20:45 | NUR ---
REPORT RECEIVED, PT A&O, UP IN BED WITH MOTHER AT BEDSIDE. NO S/S OF DISTRESS OBSERVED. RR EVEN & UNLABORED ON RA. BED LOCKED AND LOWERED, CL IN REACH. ASSESSMENT COMPLETED AT THIS TIME. WILL CONT POC.
[2020-11-08 21:59] VITALS: BP 93/76
[2020-11-09] VITALS (7 sets, daily range): BP systolic 94–102; BP diastolic 53–78; Ht 152.4 cm; Wt 59.9 kg
[2020-11-09 06:16] LABS: BASOPHILS 0.6 % (0-2); EOSINOPHILS 2.5 % (0-7); HEMATOCRIT 53.7 % (36.0-48.0); HEMOGLOBIN 18.5 g/dL (12-16); IMMATURE GRANULOCYTES 0.3 % (0-5); LYMPHOCYTE ABS# 1.47 10x3/uL (1.18-3.74); LYMPHOCYTES 40.5 % (15-50); MCH 28.5 pg (26.0-34.0); MCHC 34.5 g/dL (31.0-37.0); MCV 82.7 fL (80.0-100.0); MONOCYTES 17.4 % (2-11); NEUTROPHIL ABS# 1.41 10x3/uL (1.56-6.13); NEUTROPHILS 38.7 % (40-80); PLATELET COUNT 104 10x3/uL (130-400); RBC 6.49 10x6/uL (4.00-5.40); RDW 15.2 % (11.5-14.5); WBC 3.6 10x3/uL (4.8-10.8)
[2020-11-09 06:18] LABS: ALBUMIN 4.3 g/dL (3.4-5.0); ALKALINE PHOSPHATASE 80 U/L (30-120); ALT (SGPT) 17 U/L (10-68); BILIRUBIN - TOTAL 2.25 mg/dL (0.2-1.3); CALC OSMOLALITY 272 mosm/kg (275-300); CALCIUM 9.8 mg/dL (8.5-10.1); CARBON DIOXIDE 27.8 mmol/L (21.0-32.0); CHLORIDE - SERUM 96 mmol/L (98-107); CREATININE - SERUM 0.9 mg/dL (0.6-1.3); GLUCOSE 109 mg/dL (74-106); MAGNESIUM - SERUM 1.9 mg/dL (1.8-2.4); POTASSIUM - SERUM 3.4 mmol/L (3.5-5.1); PROTEIN - SERUM 8.2 g/dL (6.4-8.2); SODIUM 135 mmol/L (136-145); UREA NITROGEN 18 mg/dL (7-18); eGFR NON AFRICAN AMERICAN 76 mL/min (90-120)
--- NOTE | 2020-11-09 20:00 | NUR ---
REPORT RECEIVED. PT A&O, UP IN BED WATCHING TV WITH MOM AT BEDSIDE. NO S/S OF DISTRESS OBSERVED. RR EVEN & UNLABORED ON RA. BED LOCKED AND LOWERED, CL IN REACH. ASSESSMENT COMPLETED. WILL CONT POC.
[2020-11-10 01:48] VITALS: BP 96/65
[2020-11-10 05:50] VITALS: BP 98/65
[2020-11-10 06:36] LABS: ALBUMIN 4.2 g/dL (3.4-5.0); ANION GAP 14.4 mmol/L (8-16); BILIRUBIN - TOTAL 1.65 mg/dL (0.2-1.3); CALCIUM 9.7 mg/dL (8.5-10.1); CARBON DIOXIDE 27.5 mmol/L (21.0-32.0); MAGNESIUM - SERUM 1.7 mg/dL (1.8-2.4); POTASSIUM - SERUM 3.9 mmol/L (3.5-5.1); PROTEIN - SERUM 7.5 g/dL (6.4-8.2)
[2020-11-10 06:45] LABS: HEMATOCRIT 51.8 % (36.0-48.0); HEMOGLOBIN 17.6 g/dL (12-16); LYMPHOCYTE ABS# 1.92 10x3/uL (1.18-3.74); MCH 28.3 pg (26.0-34.0); MCV 83.3 fL (80.0-100.0); NEUTROPHIL ABS# 1.29 10x3/uL (1.56-6.13); PLATELET COUNT 95 10x3/uL (130-400); RBC 6.22 10x6/uL (4.00-5.40); RDW 14.8 % (11.5-14.5); WBC 3.8 10x3/uL (4.8-10.8)
[2020-11-10 08:09] VITALS: BP 94/68
[2020-11-10 11:39] VITALS: BP 109/81
[2020-11-10 12:18] LABS: EOSINOPHILS 6 % (0-7); LYMPHOCYTES 55 % (15-50); MONOCYTES 12 % (2-11); NEUTROPHILS 25 % (40-80); PLATELET ESTIMATE DECREASED; ROULEAUX OCC
[2020-11-10 16:15] VITALS: BP 108/74
--- NOTE | 2020-11-10 19:05 | NUR ---
PTS VEINS FROM PREVIOUS IV IN R FA ARE RED, SWOLLEN, AND ITCHY. THEY ARE MARKABLE BY RED STREAKS GOING UP THE ARM. VEINS FROM CURRENT IV IN R UA ARE ALSO RED. REMOVED IV. RESITED IV TO L FA. ELEVATED AND APPLIED HEAT TO RIGHT ARM. NOTIFIED SHAHRIAR OLIVIER APN. ORDERS FOR BENADRYL IV Q6H AND US VENOUS DOPPLAR OF THE R ARM GIVEN. US SCHEDULED FOR AM ON 11/11/20. DOBUTAMINE DRIP INFUSING AT 5.5 TO THE L FA. PT A&O, UP IN BED WITH FAMILY AT BEDSIDE. NO S/S OF DISTRESS OBSERVED. RR EVEN & UNLABORED ON RA. BED LOCKED AND LOWERED, CL IN REACH. ASSESSMENT COMPLETE. WILL CONT POC.
--- NOTE | 2020-11-10 21:30 | NUR ---
BENADRYL GIVEN IV TO L FA. WILL REASSESS.
[2020-11-10 23:25] VITALS: BP 96/64
--- NOTE | 2020-11-11 00:15 | NUR ---
REASSESSED PTS R ARM. MORE SWOLLEN AND RED. WILL CONSULT WITH SHAHRIAR OLIVIER APN.
--- NOTE | 2020-11-11 01:45 | NUR ---
SPOKE WITH SHAHRIAR OLIVIER APN ABOUT PTS R ARM. ORDERS RECEIVED FOR PEPCID AND SOLU MEDROL.
--- NOTE | 2020-11-11 02:54 | NUR ---
PT RECEIVED 1MG DILAUDID AT 0237. SHAHRIAR OLIVIER APN NOTIFIED. PT A&O, NO S/S OF DISTRESS OBSERVED. RR EVEN AND UNLABORED ON RA. NO NEW ORDERS GIVEN.
[2020-11-11 05:09] VITALS: BP 93/66
[2020-11-11 07:45] LABS: ALBUMIN 3.9 g/dL (3.4-5.0); ALKALINE PHOSPHATASE 82 U/L (30-120); ALT (SGPT) 20 U/L (10-68); BILIRUBIN - TOTAL 1.35 mg/dL (0.2-1.3); CALC OSMOLALITY 271 mosm/kg (275-300); CALCIUM 9.1 mg/dL (8.5-10.1); CARBON DIOXIDE 27.2 mmol/L (21.0-32.0); CHLORIDE - SERUM 98 mmol/L (98-107); CREATININE - SERUM 0.9 mg/dL (0.6-1.3); GLUCOSE 97 mg/dL (74-106); POTASSIUM - SERUM 3.8 mmol/L (3.5-5.1); PROTEIN - SERUM 7.5 g/dL (6.4-8.2); SODIUM 135 mmol/L (136-145); UREA NITROGEN 18 mg/dL (7-18); eGFR NON AFRICAN AMERICAN 76 mL/min (90-120)
[2020-11-11 08:00] VITALS: BP 107/63
[2020-11-11 08:08] LABS: BASOPHILS 0.3 % (0-2); EOSINOPHILS 5.1 % (0-7); HEMATOCRIT 49.5 % (36.0-48.0); HEMOGLOBIN 16.7 g/dL (12-16); LYMPHOCYTE ABS# 1.02 10x3/uL (1.18-3.74); LYMPHOCYTES 32.6 % (15-50); MCH 28.3 pg (26.0-34.0); MCHC 33.7 g/dL (31.0-37.0); MCV 83.8 fL (80.0-100.0); NEUTROPHIL ABS# 1.69 10x3/uL (1.56-6.13); PLATELET COUNT 88 10x3/uL (130-400); RBC 5.91 10x6/uL (4.00-5.40); RDW 14.9 % (11.5-14.5); WBC 3.1 10x3/uL (4.8-10.8)
--- NOTE | 2020-11-11 09:20 | NUR ---
PRE-OPS GIVEN. TO OR BY BED. WILL CONT. PLAN OF CARE.
--- NOTE | 2020-11-11 11:02 | NUR ---
PATIENT AWAKE, LOCAL ONLY HAD A SMALL FREAK OUT AT BEGINNING OF CASE. PATIENT HAD LEGS WRAPPED UNDER OR BED AND WOULD NOT LET GO. SMALL INDENTION ON PATIENT RIGHT TOP OF FOOT FROM HOLDING IT AGAINST OR BED. FOAM PADS THEN WERE WRAPPED AROUND FEET IN CASE HAPPENED AGAIN.
--- NOTE | 2020-11-11 11:11 | NUR ---
PT REFUSES ALL PAIN MEDICIATION IN RECOVERY
[2020-11-11 11:27] VITALS: BP 106/77
--- NOTE | 2020-11-11 11:34 | NUR ---
BACK FROM OR. VS WNL. ABD CARINA CDI. WILL MONITOR.
--- NOTE | 2020-11-11 12:18 | NUR ---
Nutrition Follow-up: NPO for VHR this AM. PO intake has been poor. Wt: 131# (11/11); 134# (11/06) Labs noted: Na 135 Meds noted: Reglan, Dulcolax, Lasix, Micro K, Protonix, electrolyte protocol -Rec resume low Na/cardiac diet when medically feasible. -Monitor wt. - follow-up: 11/16
[2020-11-11 16:04] VITALS: BP 95/52
--- NOTE | 2020-11-11 17:03 | NUR ---
UP AMBULATING HALLWAY WITH FAMILY MEMBER.
--- NOTE | 2020-11-11 19:00 | NUR ---
REPORT GIVEN BY MARIA TERESA GOOD
--- NOTE | 2020-11-11 19:45 | NUR ---
AFTER REPORT I IMMEDIATELY WENT TO PT ROOM SINCE I'D BEEN TOLD SEVERAL TIMES THAT SHE NEEDED PAIN MEDS. PT WAS CRYING STATING THAT SHE WAS IN EXTREME PAIN. SHE HAD A NORCO 10 AT 1858. AFTER LOOKING AT THE MAR AND TALKING TO THE NURSE SHE HAD LAST NIGHT I GAVE HER 1 MG OF DILAUDID. HER MOTHER IS IN THE ROOM
[2020-11-11 20:00] VITALS: BP 97/55
--- NOTE | 2020-11-11 20:30 | NUR ---
PT HAD HAS A DOBUTAMINEDRIP RUNNING. PT IS NOW C/O THAT HER VEINS ARE "RED". THE NURSE FROM LAST NIGHT HAD FILLED ME IN ON THESE VEINS. I TALKED TO HER AND WE CALLED THE FISH DRESSING MACHINE FEEDERSHAHRIAR.
--- NOTE | 2020-11-11 20:40 | NUR ---
THERE IS A BENADRYL ORDER AND PT RECEIVED 25 MG IV.
--- NOTE | 2020-11-11 22:00 | NUR ---
SHAHRIAR RETURNED THE CALL. HE DEFERED TO [employer]IME PLANT OPERATOR. SLIME PLANT OPERATOR D/C THE DRIP AND STATES THEY WILL SEE THE PT IN THE AM.
--- NOTE | 2020-11-11 22:30 | NUR ---
PT STILL IN A GREAT DEAL OF PAIN. I WENT IN AND TALKED TO HER ABOUT THIS. I TOLD HER I WOULD SEE WHAT I COULD GIVE HER BETWEEN NOW AND MIDNIGHT WHEN SHE CAN MORE MED
--- NOTE | 2020-11-11 22:56 | NUR ---
I GAVE PT LEVSIN AND HER MELATONIN PO. I GAVE HER REGLAN 5 MV IV AT 2256. HOPEFULLY THIS WILL HELP UNTIL NARCOTIC CAN BE GIVEN.
--- NOTE | 2020-11-11 23:49 | NUR ---
PT WAS GIVEN 1 MG DILAUDID IV FOR PAIN. HER PAIN LEVEL WAS A TEN. THIS GAVE HER SOME RELIEF AT THE TIME IT WAS GIVEN.
[2020-11-12] VITALS: BP 98/63
--- NOTE | 2020-11-12 01:00 | NUR ---
PT IS SITTING UP IN BED ASLEEP. HER MOTHER IS ASLEEP.
--- NOTE | 2020-11-12 02:21 | NUR ---
PT IS STILL SLEEPING.
[2020-11-12 04:00] VITALS: BP 101/65
[2020-11-12 06:17] LABS: BASOPHILS 0.1 % (0-2); EOSINOPHILS 0.7 % (0-7); HEMATOCRIT 48.4 % (36.0-48.0); IMMATURE GRANULOCYTES 0.1 % (0-5); LYMPHOCYTE ABS# 1.59 10x3/uL (1.18-3.74); LYMPHOCYTES 23.4 % (15-50); MCH 27.6 pg (26.0-34.0); MCHC 33.1 g/dL (31.0-37.0); MCV 83.6 fL (80.0-100.0); MONOCYTES 9.7 % (2-11); NEUTROPHIL ABS# 4.47 10x3/uL (1.56-6.13); PLATELET COUNT 85 10x3/uL (130-400); RBC 5.79 10x6/uL (4.00-5.40); RDW 14.8 % (11.5-14.5)
[2020-11-12 06:20] LABS: WBC 6.8 10x3/uL (4.8-10.8)
[2020-11-12 06:28] LABS: ALBUMIN 3.7 g/dL (3.4-5.0); BILIRUBIN - TOTAL 1.47 mg/dL (0.2-1.3); CALCIUM 9.3 mg/dL (8.5-10.1); CARBON DIOXIDE 27.1 mmol/L (21.0-32.0); POTASSIUM - SERUM 4.1 mmol/L (3.5-5.1); PROTEIN - SERUM 7.3 g/dL (6.4-8.2)
[2020-11-12 06:45] LABS: PLATELET ESTIMATE DECREASED
--- NOTE | 2020-11-12 08:24 | NUR ---
0800 UP TO BATHROOM INDEPENDENTLY DRESSING BELOW NAVAL AREA WITH SCANT SHADOWING DR LABOY AT BEDSIDE SPEAKING WITH PATIENT
[2020-11-12 08:58] VITALS: BP 81/57
[2020-11-12] MEDS ORDERED: LEVSIN/ANASP0.125 MG PO (11:59)
[2020-11-12] MEDS ORDERED: PROTONIX40 MG PO (12:00)
[2020-11-12] MEDS ORDERED: DULCOLAX5 MG PO (12:00)
[2020-11-12] MEDS ORDERED: MELATONIN 3 MG1 TAB PO (12:00)
[2020-11-12] MEDS ORDERED: HYDROCODON-ACE1 EA10 PO (12:00)
--- NOTE | 2020-11-12 13:47 | MORECARE ---
CASE MANAGEMENT DISCHARGE SUMMARY PATIENT: NIRANJAN TUTTLE UNIT: [id number] ADM DATE: 11/04/20 AGE: 35 : 87 SEX: F ROOM/BED: D.7472 AUTHOR: BIRDDOC PHYSICIAN: REFERRING PHYSICIAN: GIO JORDAN DO DATE OF SERVICE: 11/12/20 Case Management Discharge Planning Summary DCP REVIEW SUMMARY ANTICIPATED D/C DATE: 11/12/2020 EXPECTED LOS : 8 CASE STATUS: DCP Initiated INITIAL REVIEW: 11/04/2020 INITIAL REVIEWER: Akilah Mario FINAL DISCHARGE DISPOSITION: 01 : Home or Self Care (Routine Discharge) FINAL REVIEWER: Akilah Mario FINAL REVIEW DATE: 11/12/2020 DCP Focus Questions & Answers DCP Screen QUESTION: ANSWER High Risk Factors: : Hosp related to CHF, COPD, DM, End Stage Ds, CVA, CA DCP Evaluation QUESTION: ANSWER Patient's ability to cope with chronic illness : d. No chronic illness Patient gives permission to discuss discharge plans with: (name, relationship and number) : n/a Physical Status: : Partial care dependence Living Arrangements: : Home with Extended Family Living arrangements comments: : lives with sister Baseline cognitive status: : *Oriented to person, place, situation, time and present Pharmacy name(s): : [facility] Does Patient have transportation to get home and to follow-up medical appointments when discharged from the hospital? : Yes Would patient like to participate in any Care Coordination programs (if applicable): : Not applicable Comments: : Her sister will assist Does the patient have running water in their house? 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 Had been on Transplant list Contact information for resources in use: : patient had been on services with [facility] at one time DCP Re-evaluation QUESTION: ANSWER Would patient like to participate in any Care Coordination programs (if applicable): : Not applicable PATIENT: NIRANJAN TUTTLE ENCOUNTER: [id number] MEDICAL RECORD#: [id number] ADMISSION DATE: 11/04/2020 DISCHARGE DATE: ATTENDING MD: GIO GIRON : AGE: 35 MARITAL STATUS: S DC PLAN ID: [id number] FACILITY: [facility] PRINTED ON: 11/12/20 13:47 CT All edits/amendments must be made on the electronic document DICTATION DATE: 11/12/201346 INFRASTRUCTURE PROJECT MANAGER: ALICJA 11/12/201346 RPT#: [id number] DC DATE: STATUS: ADM IN [facility] [address] [place] [address] END OF REPORT
--- NOTE | 2020-11-12 14:01 | MORECARE ---
CASE MANAGEMENT DISCHARGE SUMMARY PATIENT: NIRANJAN TUTTLE UNIT: [id number] ADM DATE: 11/04/20 AGE: 35 : 87 SEX: F ROOM/BED: D.8954 AUTHOR: BIRD,DOC PHYSICIAN: REFERRING PHYSICIAN: GIO JORDAN DO DATE OF SERVICE: 11/12/20 Case Management Discharge Planning Summary COMMENTS ENTERED DATE: 11/12/20 13:45 CT COMMENT TYPE: Discharge Planning REVIEWER: Akilah Mario CM SPOKE WITH THE PATIENT VIA PHONE. HAD VIITED IN ROOM BRIEFLY BUT PATIENT WAS REQUESTING PAIN MEDICATION AND WAS VISIBLY UNCOMFORTABLE. VISITOR AT THE BEDSIDE. THE PATIENT' SISTER WILL PROVIDE TRANSPORTATION TO HOME. CM EXPLINED MY ROLE. SHE DENIED ANY NEEDS AT THIS TIME. SHE WILL RETURN TO HOME AT [address] [place] [address]. HER CONTACT PHONE NUMBER IS [phone]. SHESTATES SHE HAS GOOD FAMILY SUPPORT. SHE HAD BEEN ON SERVICE / [facility] AT ONE TIME. IS NOT PRESENTLY ON HOSPICE SHE PLANS TO FOLLOW UP WITH [facility]. DENIES ANY DME AT THIS TIME OR NEED FOR DME.. DCP REVIEW SUMMARY ANTICIPATED D/C DATE: 11/12/2020 EXPECTED LOS : 8 CASE STATUS: DCP Initiated INITIAL REVIEW: 11/04/2020 INITIAL REVIEWER: Akilah Mario FINAL DISCHARGE DISPOSITION: 01 : Home or Self Care (Routine Discharge) FINAL REVIEWER: Akilah Mario FINAL REVIEW DATE: 11/12/2020 DCP Focus Questions & Answers DCP Screen QUESTION: ANSWER High Risk Factors: : Hosp related to CHF, COPD, DM, End Stage Ds, CVA, CA DCP Evaluation QUESTION: ANSWER Patient's ability to cope with chronic illness : d. No chronic illness Patient gives permission to discuss discharge plans with: (name, relationship and number) : n/a Physical Status: : Partial care dependence Living Arrangements: : Home with Extended Family Living arrangements comments: : lives with sister Baseline cognitive status: : *Oriented to person, place, situation, time and present [facility](s[facility] : [facility] [address] Does Patient have transportation to get home and to follow-up medical appointments when discharged from the hospital? : Yes Would patient like to participate in any Care Coordination programs (if applicable): : Not applicable Comments: : Her sister will assist Does the patient have running water in their house? 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 Had been on Transplant list Contact information for resources in use: : patient had been on services with [facility] at one time DCP Re-evaluation QUESTION: ANSWER Would patient like to participate in any Care Coordination programs (if applicable): : Not applicable PATIENT: NIRANJAN TUTTLE ENCOUNTER: [id number] MEDICAL RECORD#: [id number] ADMISSION DATE: 11/04/2020 DISCHARGE DATE: ATTENDING MD: GIO GIRON : AGE: 35 MARITAL STATUS: S DC PLAN ID: [id number] FACILITY: [facility] PRINTED ON: 11/12/20 14:01 CT All edits/amendments must be made on the electronic document DICTATION DATE: 11/12/201400 DONOR RELATIONS MANAGER: ALICJA 11/12/201400 RPT#: [id number] DC DATE: STATUS: ADM IN [facility] [address] [place] [address] END OF REPORT
--- NOTE | 2020-11-12 14:38 | NUR ---
1406 WRITTEN AND VERBAL DISCHARGE INSTRUCTIONS GIVEN BOTH PATIENT AND HER MOTHER VERBALIZED UNDERSTANDING RIGHT HAND IV DISCONTINUED SIST SATISFACTORY. TRANSPORTED PT VIA WHEELCHAIR TO CAR RX X 2 GIVEN ALSO
--- NOTE | 2020-11-13 16:52 | MORECARE ---
CASE MANAGEMENT DISCHARGE SUMMARY PATIENT: NIRANJAN TUTTLE UNIT: [id number] ADM DATE: 11/04/20 AGE: 35 : 87 SEX: F ROOM/BED: D.9965 AUTHOR: BIRD,DOC PHYSICIAN: REFERRING PHYSICIAN: GIO JORDAN DO DATE OF SERVICE: 11/13/20 Case Management Discharge Planning Summary COMMENTS ENTERED DATE: 11/12/20 13:45 CT COMMENT TYPE: Discharge Planning REVIEWER: Akilah Mario CM SPOKE WITH THE PATIENT VIA PHONE. HAD VIITED IN ROOM BRIEFLY BUT PATIENT WAS REQUESTING PAIN MEDICATION AND WAS VISIBLY UNCOMFORTABLE. VISITOR AT THE BEDSIDE. THE PATIENT' SISTER WILL PROVIDE TRANSPORTATION TO HOME. CM EXPLINED MY ROLE. SHE DENIED ANY NEEDS AT THIS TIME. SHE WILL RETURN TO HOME [place] [address] [place] [address]. HER CONTACT PHONE NUMBER IS [phone]. SHESTATES SHE HAS GOOD FAMILY SUPPORT. SHE HAD BEEN ON SERVICE / [facility] AT ONE TIME. IS NOT PRESENTLY ON HOSPICE SHE PLANS TO FOLLOW UP WITH [facility]. DENIES ANY DME AT THIS TIME OR NEED FOR DME.. DCP REVIEW SUMMARY ANTICIPATED D/C DATE: 11/12/2020 EXPECTED LOS : 8 CASE STATUS: DCP Initiated INITIAL REVIEW: 11/04/2020 INITIAL REVIEWER: Akilah Mario FINAL DISCHARGE DISPOSITION: 01 : Home or Self Care (Routine Discharge) FINAL REVIEWER: Akilah Mario FINAL REVIEW DATE: 11/12/2020 DCP Focus Questions & Answers DCP Screen QUESTION: ANSWER High Risk Factors: : Hosp related to CHF, COPD, DM, End Stage Ds, CVA, CA DCP Evaluation QUESTION: ANSWER Patient gives permission to discuss discharge plans with: (name, relationship and number) : n/a Patient's ability to cope with chronic illness : d. No chronic illness Physical Status: : Partial care dependence Living Arrangements: : Home with Extended Family Baseline cognitive status: : *Oriented to person, place, situation, time and present Living arrangements comments: : lives with sister Pharm[facility] name(s): : [facility] and [place] Does Patient have transportation to get home and to follow-up medical appointments when discharged from the hospital? : Yes Comments: : Her sister will assist Would patient like to participate in any Care Coordination programs (if applicable): : Not applicable Does the patient have running water in their house? 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 Had been on Transplant list Contact information for resources in use: : patient had been on services with [facility] at one time DCP Re-evaluation QUESTION: ANSWER Would patient like to participate in any Care Coordination programs (if applicable): : Not applicable PATIENT: NIRANJAN TUTTLE ENCOUNTER: [id number] MEDICAL RECORD#: [id number] ADMISSION DATE: 11/04/2020 DISCHARGE DATE: 11/12/2020 ATTENDING MD: GIO GIRON : AGE: 35 MARITAL STATUS: S DC PLAN ID: [id number] FACILITY: [facility] PRINTED ON: 11/13/20 16:52 CT All edits/amendments must be made on the electronic document DICTATION DATE: 11/13/201650 [employer] FINISHER: ALICJA 11/13/201650 RPT#: [id number] DC DATE:11/12/20 STATUS: DIS IN [facility] [address] [place] [address] END OF REPORT
== END 2020-11-12 14:02 | disposition home or self-care (01) | DRG 354 ==
LOC: D.ER 20:04 → D.M2 21:41
PROVIDERS: Emergency Medicine; Surgery; ADMIT Family Medicine; ATTEND Family Medicine
PROC: 0WQF0ZZ Repair Abdominal Wall, Open Approach (ICD-10-PCS; principal; 2020-11-11 11:00)
DX: K42.9 Umbilical hernia without obstruction or gangrene (principal); I42.0 Dilated cardiomyopathy; N17.9 Acute kidney failure, unspecified; I50.20 Unspecified systolic (congestive) heart failure; I44.0 Atrioventricular block, first degree; D69.6 Thrombocytopenia, unspecified; E87.6 Hypokalemia; F12.90 Cannabis use, unspecified, uncomplicated; Z95.0 Presence of cardiac pacemaker